=== PATIENT | male | born 1985 | race Caucasian/White ===

== ENCOUNTER 2019-10-03 22:47 | Emergency (ER) | payer MEDICAID ==
[~2019-10-03] VITALS: Ht 167.6 cm; Wt 69.0 kg
[2019-10-04] MEDS ORDERED: TETANUS, DIPHTHERIA, PERTUSSIS VAC/PF 0.5ML (>7YR OLD) IM ONE (00:30)
[2019-10-04] MEDS ORDERED: LIDOCAINE HCL 1% 20ML VIAL (Pyxis) INJ INFIL ONE (00:30)
[2019-10-04] MEDS ORDERED: ACETAMINOPHEN 325MG TABLET PO ONE (00:30)
[2019-10-04] MEDS ORDERED: BACITRACIN 15GM TUBE TOP ONE (03:00)
[2019-10-04 03:26] VITALS: BP 109/77
== END 2019-10-04 03:29 | disposition home or self-care (01) ==
LOC: ER 22:53
DX: S61.012A Laceration without foreign body of left thumb without damage to nail, initial encounter (principal); Y93.G3 Activity, cooking and baking; Y92.89 Other specified places as the place of occurrence of the external cause; Z23 Encounter for immunization
CPT/HCPCS: 12001; 73140; 90471; 90715; 99283; J3490; Z7610

== ENCOUNTER 2019-10-06 13:10 | Emergency (ER) | payer MEDICAID ==
[~2019-10-06] VITALS: Ht 162.6 cm; Wt 58.0 kg
[2019-10-06 13:24] VITALS: BP 118/75
== END 2019-10-06 14:52 | disposition home or self-care (01) ==
LOC: ER 13:10
DX: Z48.00 Encounter for change or removal of nonsurgical wound dressing (principal)
CPT/HCPCS: 99281

== ENCOUNTER 2019-10-18 08:10 | Emergency (ER) | payer MEDICAID ==
[~2019-10-18] VITALS: Ht 162.6 cm; Wt 85.0 kg
[2019-10-18 08:21] VITALS: BP 132/85
== END 2019-10-18 08:49 | disposition home or self-care (01) ==
LOC: ER 08:14
DX: Z48.02 Encounter for removal of sutures (principal)
CPT/HCPCS: 99281

== ENCOUNTER 2025-08-04 11:14 | Emergency (ER) | payer OTHER, MEDICAID ==
[~2025-08-04] VITALS: Ht 162.6 cm; Wt 68.0 kg
[2025-08-04 11:17] VITALS: O2SAT 9
[2025-08-04] MEDS: KETOROLAC 30MG/ML VIAL IM ONE (14:06)
[2025-08-04] MEDS: HYDROXYZINE 25MG TABLET PO ONE (14:06)
[2025-08-04] MEDS ORDERED: KETO10TA2 MT (16:13)
[2025-08-04 17:20] VITALS: BP 135/84; PULSE 84; RESP 16; TEMP 36.4; O2SAT 100
== END 2025-08-04 17:25 | disposition home or self-care (01) ==
LOC: ER 11:14
DX: M79.672 Pain in left foot (principal); V13.4XXA Pedal cycle driver injured in collision with car, pick-up truck or van in traffic accident, initial encounter; Y93.55 Activity, bike riding; Y92.410 Unspecified street and highway as the place of occurrence of the external cause; Y99.8 Other external cause status
CPT/HCPCS: 73630; 96372; 99283; J1885; Z7610

== ENCOUNTER 2025-08-25 12:54 | Emergency (ER) | payer MEDICAID, OTHER ==
[~2025-08-25] VITALS: Ht 167.6 cm; Wt 82.0 kg
[~2025-08-25 12:54] MED LIST: KETO10TA2 MT
[2025-08-25 13:01] VITALS: TEMP 37; O2SAT 98
[2025-08-25] MEDS: ONDANSETRON 4MG ODT PO ONE (14:03)
[2025-08-25] MEDS: MECLIZINE 12.5MG TABLET PO ONE (14:03)
[2025-08-25 14:05] LABS: BASOPHILS % 0.8 % (0.0-2.0); EOSINOPHILS % 0.5 % (0.0-5.0); HEMATOCRIT. 53.2 % (42.0-52.0); HEMOGLOBIN. 18.4 g/dL (14.0-18.0); LYMPHOCYTES % 23.9 % (20.0-50.0); MEAN PLATELET VOLUME 8.4 fl (7.4-10.4); MONOCYTES % 5.5 % (2.0-8.0); NEUTROPHILS % 69.3 % (40.0-76.0); PLATELET 178 x1000/uL (130-400); RED BLOOD CELL COUNT 5.92 mill/uL (4.7-6.1); RED CELL DISTRIBUTION WIDTH 13.2 % (11.6-14.6)
[2025-08-25 14:19] LABS: CLARITY URINE CLEAR (CLEAR); COLOR URINE YELLOW (YELLOW); GLUCOSE URINE NEGATIVE (NEGATIVE); KETONES URINE NEGATIVE (NEGATIVE); LEUKOCYTE ESTERASE URINE NEGATIVE (NEGATIVE); NITRITE URINE NEGATIVE (NEGATIVE); OCCULT BLOOD URINE NEGATIVE (NEGATIVE); PH URINE 7.5 (4.5-8.0); PROTEIN URINE NEGATIVE (NEGATIVE); SPECIFIC GRAVITY URINE 1.003 (1.005-1.030); UROBILINOGEN URINE 0.2 E.U./dL (0.2-1.0)
[2025-08-25 14:20] LABS: TROPONIN I HIGH SENSITIVITY < 4 ng/L (3.0-53)
[2025-08-25 14:22] LABS: ASPARTATE AMINOTRANSFERASE 54 IU/L (<34); BILIRUBIN DIRECT 0.3 mg/dL (<=3.0); BILIRUBIN TOTAL 1.0 mg/dL (0.1-1.0); CREATININE 0.8 mg/dL (0.6-1.3); PROTEIN TOTAL 7.5 g/dL (6.0-8.3)
[2025-08-25 14:29] LABS: UREA NITROGEN BLOOD 8 mg/dL (9-23)
[2025-08-25 14:31] LABS: *AMPHETAMINES SCREEN URINE NEGATIVE (NEGATIVE); *BARBITURATES SCREEN URINE NEGATIVE (NEGATIVE); *BENZODIAZEPINES SCREEN URINE NEGATIVE (NEGATIVE); *COCAINE SCREEN URINE NEGATIVE (NEGATIVE)
[2025-08-25 14:32] LABS: CANNABINOID URINE SCREEN NEGATIVE (NEGATIVE); ECSTASY MDMA SCREEN URINE NEGATIVE (NEGATIVE); METHADONE URINE SCREEN NEGATIVE (NEGATIVE); OPIATES URINE SCREEN NEGATIVE (NEGATIVE); PHENCYCLIDINE URINE SCREEN NEGATIVE (NEGATIVE)
[2025-08-25] MEDS ORDERED: ONDA-239 PO (15:01)
[2025-08-25] MEDS ORDERED: IBUP-2028 MT (15:01)
[2025-08-25 15:21] VITALS: BP 132/83; PULSE 70; RESP 18; O2SAT 100
== END 2025-08-25 15:26 | disposition home or self-care (01) ==
LOC: ER 12:54 → CMPBEDREQ 08-26 07:58
DX: R42 Dizziness and giddiness (principal); Z79.899 Other long term (current) drug therapy
CPT/HCPCS: 80076; 80305; 80048; 81003; 80320; 82962; 83690; 83735; 85025; 84484; 36415; 71045; 70450; 93005; 99285; J8597; Q0162; G0480

== ENCOUNTER 2025-09-08 18:12 | Emergency (ER) | payer OTHER ==
[~2025-09-08] VITALS: Ht 167.6 cm; Wt 75.0 kg
[~2025-09-08 18:12] MED LIST changes: +IBUP-2028 MT; +ONDA-239 PO
[2025-09-08 18:44] VITALS: O2SAT 99
[2025-09-09 01:24] LABS: BASOPHILS % 0.9 % (0.0-2.0); EOSINOPHILS % 1.3 % (0.0-5.0); HEMATOCRIT. 51.2 % (42.0-52.0); HEMOGLOBIN. 17.9 g/dL (14.0-18.0); LYMPHOCYTES % 37.1 % (20.0-50.0); MEAN PLATELET VOLUME 8.3 fl (7.4-10.4); MONOCYTES % 6.1 % (2.0-8.0); NEUTROPHILS % 54.6 % (40.0-76.0); PLATELET 183 x1000/uL (130-400); RED BLOOD CELL COUNT 5.79 mill/uL (4.7-6.1); RED CELL DISTRIBUTION WIDTH 12.7 % (11.6-14.6)
[2025-09-09] MEDS: ACETAMINOPHEN 325MG TABLET PO ONE (01:33)
[2025-09-09] MEDS: ONDANSETRON 4MG ODT PO ONE (01:33)
[2025-09-09 01:38] LABS: CREATININE 0.9 mg/dL (0.6-1.3); UREA NITROGEN BLOOD 8 mg/dL (9-23)
[2025-09-09 01:39] LABS: TROPONIN I HIGH SENSITIVITY 5 ng/L (3.0-53)
[2025-09-09 01:40] LABS: ASPARTATE AMINOTRANSFERASE 46 IU/L (<34); BILIRUBIN DIRECT 0.3 mg/dL (<=3.0)
[2025-09-09 01:41] LABS: BILIRUBIN TOTAL 0.9 mg/dL (0.1-1.0); PROTEIN TOTAL 7.6 g/dL (6.0-8.3)
[2025-09-09 02:05] VITALS: BP 119/81; PULSE 63; RESP 16; TEMP 36.7; O2SAT 98
== END 2025-09-09 02:26 | disposition home or self-care (01) ==
LOC: ER 18:12
DX: R51.9 Headache, unspecified (principal); R53.1 Weakness; Z79.899 Other long term (current) drug therapy
CPT/HCPCS: 99285; 71045; 36415; 93005; 70450; 80076; 80048; 85025; 84484; Q0162

== ENCOUNTER 2025-09-12 19:34 | Emergency (ER) | payer OTHER ==
[~2025-09-12] VITALS: Ht 157.5 cm; Wt 75.0 kg
[2025-09-12 19:54] VITALS: O2SAT 98
[2025-09-12 21:43] LABS: BASOPHILS % 0.7 % (0.0-2.0); EOSINOPHILS % 0.5 % (0.0-5.0); HEMATOCRIT. 51.9 % (42.0-52.0); HEMOGLOBIN. 18.3 g/dL (14.0-18.0); LYMPHOCYTES % 19.0 % (20.0-50.0); MEAN PLATELET VOLUME 8.9 fl (7.4-10.4); MONOCYTES % 8.9 % (2.0-8.0); NEUTROPHILS % 70.9 % (40.0-76.0); PLATELET 187 x1000/uL (130-400); RED BLOOD CELL COUNT 5.91 mill/uL (4.7-6.1); RED CELL DISTRIBUTION WIDTH 12.9 % (11.6-14.6)
[2025-09-12 21:58] LABS: CREATININE 1.0 mg/dL (0.6-1.3)
[2025-09-12 21:59] LABS: TROPONIN I HIGH SENSITIVITY 5 ng/L (3.0-53); UREA NITROGEN BLOOD 6 mg/dL (9-23)
[2025-09-12 22:00] LABS: ASPARTATE AMINOTRANSFERASE 38 IU/L (<34)
[2025-09-12 22:01] LABS: BILIRUBIN DIRECT 0.2 mg/dL (<=3.0); BILIRUBIN TOTAL 0.8 mg/dL (0.1-1.0); PROTEIN TOTAL 7.6 g/dL (6.0-8.3)
[2025-09-12] MEDS ORDERED: IBUP-2030 MT (22:44)
[2025-09-12 23:03] VITALS: BP 137/100; PULSE 98; RESP 18; TEMP 37.3; O2SAT 100
== END 2025-09-12 23:05 | disposition home or self-care (01) ==
LOC: ER 19:34
DX: R07.9 Chest pain, unspecified (principal); R06.02 Shortness of breath
CPT/HCPCS: 36415; 71045; 80048; 80076; 83880; 84484; 85025; 93005; 99285

== ENCOUNTER 2025-09-21 12:10 | Emergency (ER) | payer OTHER ==
[~2025-09-21] VITALS: Ht 162.6 cm; Wt 69.0 kg
[~2025-09-21 12:10] MED LIST changes: +IBUP-2030 MT
[2025-09-21 12:18] VITALS: O2SAT 99
[2025-09-21 12:47] LABS: BASOPHILS % 0.6 % (0.0-2.0); EOSINOPHILS % 0.2 % (0.0-5.0); HEMATOCRIT. 51.5 % (42.0-52.0); HEMOGLOBIN. 18.2 g/dL (14.0-18.0); LYMPHOCYTES % 18.4 % (20.0-50.0); MEAN PLATELET VOLUME 8.2 fl (7.4-10.4); MONOCYTES % 6.5 % (2.0-8.0); NEUTROPHILS % 74.3 % (40.0-76.0); PLATELET 197 x1000/uL (130-400); RED BLOOD CELL COUNT 5.91 mill/uL (4.7-6.1); RED CELL DISTRIBUTION WIDTH 12.7 % (11.6-14.6)
[2025-09-21] MEDS: SODIUM CHLORIDE 0.9% 1,000 ML IV ONE (12:56)
[2025-09-21] MEDS: ONDANSETRON HCL 4MG/2ML INJ IV ONE (12:56)
[2025-09-21] MEDS: PANTOPRAZOLE SODIUM 40 MG/VIAL IV ONE (12:56)
[2025-09-21 13:03] LABS: CREATININE 1.0 mg/dL (0.6-1.3); UREA NITROGEN BLOOD < 5 mg/dL (9-23)
[2025-09-21 13:04] LABS: TROPONIN I HIGH SENSITIVITY 6 ng/L (3.0-53)
[2025-09-21 13:05] LABS: ASPARTATE AMINOTRANSFERASE 56 IU/L (<34); BILIRUBIN DIRECT 0.3 mg/dL (<=3.0)
[2025-09-21 13:06] LABS: BILIRUBIN TOTAL 1.1 mg/dL (0.1-1.0); PROTEIN TOTAL 7.6 g/dL (6.0-8.3)
[2025-09-21] MEDS ORDERED: FAMO-135 MT (14:06)
[2025-09-21] MEDS ORDERED: MAG355OR21 MT (14:06)
[2025-09-21 14:17] VITALS: BP 125/90; PULSE 90; RESP 19; TEMP 37.3; O2SAT 100
== END 2025-09-21 14:19 | disposition home or self-care (01) ==
LOC: ER 12:10
DX: K29.20 Alcoholic gastritis without bleeding (principal); F10.90 Alcohol use, unspecified, uncomplicated; Z79.899 Other long term (current) drug therapy; Y90.9 Presence of alcohol in blood, level not specified
CPT/HCPCS: 80076; 80048; 80320; 83690; 83735; 85025; 84484; 36415; 96361; 96374; 96375; 99284; J2405; J2470; J7030; Z7610 ×2; G0480

== ENCOUNTER 2025-10-12 20:24 | Emergency (ER) | payer OTHER ==
[~2025-10-12] VITALS: Ht 154.9 cm; Wt 73.0 kg
[~2025-10-12 20:24] MED LIST changes: +FAMO-135 MT; +MAG355OR21 MT
[2025-10-12 20:32] VITALS: TEMP 36.9; O2SAT 98
[2025-10-12 22:15] LABS: BASOPHILS % 0.6 % (0.0-2.0); EOSINOPHILS % 0.5 % (0.0-5.0); HEMATOCRIT. 52.6 % (42.0-52.0); HEMOGLOBIN. 18.1 g/dL (14.0-18.0); LYMPHOCYTES % 22.6 % (20.0-50.0); MEAN PLATELET VOLUME 8.2 fl (7.4-10.4); MONOCYTES % 4.9 % (2.0-8.0); NEUTROPHILS % 71.4 % (40.0-76.0); PLATELET 209 x1000/uL (130-400); RED BLOOD CELL COUNT 5.96 mill/uL (4.7-6.1); RED CELL DISTRIBUTION WIDTH 12.8 % (11.6-14.6)
[2025-10-12] MEDS: FAMOTIDINE 20MG TABLET PO ONE (22:27)
[2025-10-12] MEDS: MAGNESIUM/ALUMINUM HYDROXIDE/SIMETHICONE 30ML UDC PO ONE (22:27)
[2025-10-12] MEDS: KETOROLAC 15MG/ML VIAL IM ONE (22:28)
[2025-10-12] MEDS: DICYCLOMINE HCL 10MG CAPSULE PO ONE (22:28)
[2025-10-12 22:31] LABS: CREATININE 0.9 mg/dL (0.6-1.3); UREA NITROGEN BLOOD 5 mg/dL (9-23)
[2025-10-12 23:22] LABS: CLARITY URINE CLEAR (CLEAR); COLOR URINE YELLOW (YELLOW); GLUCOSE URINE NEGATIVE (NEGATIVE); KETONES URINE NEGATIVE (NEGATIVE); LEUKOCYTE ESTERASE URINE NEGATIVE (NEGATIVE); NITRITE URINE NEGATIVE (NEGATIVE); OCCULT BLOOD URINE NEGATIVE (NEGATIVE); PH URINE 7.5 (4.5-8.0); PROTEIN URINE NEGATIVE (NEGATIVE); SPECIFIC GRAVITY URINE 1.009 (1.005-1.030); UROBILINOGEN URINE 0.2 E.U./dL (0.2-1.0)
[2025-10-12] MEDS ORDERED: FAMO-135 MT (23:45)
[2025-10-12] MEDS ORDERED: MAG-55 MT (23:45)
[2025-10-12 23:54] LABS: PROTEIN TOTAL 8.3 g/dL (6.0-8.3)
[2025-10-12 23:56] LABS: ASPARTATE AMINOTRANSFERASE 38 IU/L (<34); BILIRUBIN DIRECT 0.3 mg/dL (<=3.0); BILIRUBIN TOTAL 0.9 mg/dL (0.1-1.0)
[2025-10-13 00:06] VITALS: BP 126/85; PULSE 84; RESP 16; O2SAT 99
== END 2025-10-13 00:07 | disposition home or self-care (01) ==
LOC: ER 20:24
DX: K29.20 Alcoholic gastritis without bleeding (principal); N43.3 Hydrocele, unspecified; N50.3 Cyst of epididymis; K76.0 Fatty (change of) liver, not elsewhere classified; F10.20 Alcohol dependence, uncomplicated; N43.40 Spermatocele of epididymis, unspecified; Z87.19 Personal history of other diseases of the digestive system; R03.0 Elevated blood-pressure reading, without diagnosis of hypertension; R00.0 Tachycardia, unspecified
CPT/HCPCS: 80076; 80048; 81003; 83690; 85025; 36415; 74176; 93976; 76870; 93005; 96372; 99285; J1885; Z7610